=== PATIENT | female | born 1970 | race Caucasian/White ===

== ENCOUNTER 2017-06-18 14:31 | Inpatient (IN) | payer BC ==
[2017-06-18 15:20] LABS: ADD MAN DIFF? NO
[2017-06-18] MEDS: ASPIRIN CHEWABLE 81 MG TABLET. PO (15:27)
[2017-06-18 15:28] LABS: BASO % 0 % (0-3); EOS # 0.2 x10^3/uL (0.0-0.7); EOS % 3 % (0-3); HEMATOCRIT 40.8 % (36.0-47.0); HEMOGLOBIN 14.1 g/dL (12.0-15.5); LYMPH # 1.2 x10^3/uL (1.0-4.8); LYMPH % 20 % (24-48); MEAN CORPUSCULAR HEMOGLOBIN 32 pg (25-35); MEAN CORPUSCULAR HGB CONC 35 g/dL (31-37); MEAN CORPUSCULAR VOLUME 92 fL (79-100); MONO # 0.4 x10^3/uL (0.0-1.1); MONO % 6 % (0-9); NEUT # 4.4 x10^3uL (1.8-7.7); NEUT % 71 % (31-73); PLATELET COUNT 185 x10^3/uL (140-400); RED BLOOD COUNT 4.42 x10^6/uL (3.50-5.40); RED CELL DISTRIBUTION WIDTH 13.1 % (11.5-14.5); WHITE BLOOD COUNT 6.3 x10^3/uL (4.0-11.0)
[2017-06-18] MEDS: NITROGLYCERIN SUBLINGUAL 0.4 MG BOTTLE OF 25. SL (15:28)
[2017-06-18 15:35] LABS: PROTHROMBIN TIME PATIENT 12.6 SEC (11.7-14.0)
[2017-06-18 15:38] LABS: ANION GAP 10 (6-14); BLOOD UREA NITROGEN 11 mg/dL (7-20); BUN/CREATININE RATIO 16 (6-20); CALCIUM 9.1 mg/dL (8.5-10.1); CARBON DIOXIDE 28 mmol/L (21-32); CHLORIDE 104 mmol/L (98-107); CREATININE 0.7 mg/dL (0.6-1.0); GFR 90.9; GLUCOSE 102 mg/dL (70-99); POTASSIUM 3.7 mmol/L (3.5-5.1); SODIUM 142 mmol/L (136-145)
[2017-06-18 15:44] LABS: ALBUMIN 3.6 g/dL (3.4-5.0); ALBUMIN/GLOBULIN RATIO 1.1 (1.0-1.7); ALK PHOS 96 U/L (46-116); ALT (SGPT) 26 U/L (14-59); AST (SGOT) 16 U/L (15-37); MAGNESIUM 1.9 mg/dL (1.8-2.4); TOTAL BILIRUBIN 0.3 mg/dL (0.2-1.0); TOTAL PROTEIN 6.8 g/dL (6.4-8.2)
[2017-06-18 15:49] LABS: TROPONINI < 0.017 ng/mL (0.000-0.055)
[2017-06-18 15:53] LABS: CKMB MASS < 0.5 ng/mL (0.0-3.6); CREATINE KINASE 47 U/L (26-192)
[2017-06-18 15:53] LABS: NT-PRO BNP 85 pg/mL (0-124)
[2017-06-18] MEDS ORDERED: NITROGLYCERIN SUBLINGUAL 0.4 MG BOTTLE OF 25. SL (17:00)
[2017-06-18] MEDS: ALPRAZolam 0.25 MG TABLET PO (22:26)
[2017-06-18] MEDS: oxyCODONE/APAP 5/325 1 TAB TABLET PO (22:27)
[2017-06-18] MEDS: NICOTINE 14MG PATCH. TD (22:34)
[2017-06-18 23:52] LABS: TROPONINI < 0.017 ng/mL (0.000-0.055)
[2017-06-19 06:35] LABS: TROPONINI < 0.017 ng/mL (0.000-0.055)
[2017-06-19] MEDS: ALPRAZolam 0.25 MG TABLET PO (08:30)
[2017-06-19] MEDS: NICOTINE 14MG PATCH. TD (08:58)
[2017-06-19] MEDS ORDERED: NICOTINE 14MG PATCH. TD (09:00)
== END 2017-06-19 16:45 | disposition home or self-care (01) | DRG 313 ==
LOC: ER 14:31 → 5 SOUTH 16:31
DX: R07.9 Chest pain, unspecified (principal); F17.200 Nicotine dependence, unspecified, uncomplicated; K21.9 Gastro-esophageal reflux disease without esophagitis; Z82.49 Family history of ischemic heart disease and other diseases of the circulatory system; Z88.8 Allergy status to other drugs, medicaments and biological substances; Z98.51 Tubal ligation status; Z71.89 Other specified counseling
CPT/HCPCS: 36415; 71045; 78452; 80053; 82553; 83735; 83880; 84484; 85025; 85610; 93005; 93017; 96372; 96374; 96376; 99285; 99285-25; A9500